=== PATIENT | male | born 1990 | race Caucasian/White ===

== ENCOUNTER 2016-06-07 13:21 | Outpatient (RCR) | payer OTHER ==
[~2016-06-07 13:21] MED LIST: CEPH-331 PO; WARF2.5T PO
[2016-06-09 11:27] LABS: PROTEIN C FUNCTIONAL ASSAY 101 % (70-150)
[2016-06-10 12:32] LABS: ANTI THROMBIN 3 FUNCTIONAL 87 % (72-128)
== END 2016-08-11 19:19 | disposition home or self-care (01) ==
LOC: LAB 13:21 → EDSTATUS 13:21 → LAB 08-11 19:19
PROVIDERS: ATTEND Internal Medicine Hematology & Oncology
DX: Z86.718 Personal history of other venous thrombosis and embolism (principal)
CPT/HCPCS: 36415; 85300; 85303; 85306; 85379

== ENCOUNTER → 2016-06-08 | Outpatient (CLI) | payer OTHER | LOC: RAD 12:47 | PROVIDERS: ATTEND Internal Medicine Hematology & Oncology | DX: Z86.718 Personal history of other venous thrombosis and embolism (principal); I82.412 Acute embolism and thrombosis of left femoral vein ==